=== PATIENT | female | born 1985 | race Caucasian/White ===

== ENCOUNTER → 2017-09-19 10:00 | Outpatient (CLI) | payer OTHER, SELFPAY ==
[2017-09-21 15:31] LABS: HPV Reflexed? NOT INDICATED
== END ==
PROVIDERS: Visit Provider Obstetrics & Gynecology
DX: Z12.4 Encounter for screening for malignant neoplasm of cervix (principal)
CPT/HCPCS: 88175; G0145

== ENCOUNTER → 2018-03-08 15:54 | Outpatient (CLI) | payer OTHER, SELFPAY ==
[2018-03-08 19:27] LABS: Chlamydia Trachomatis by PCR Negative (Negative); Neisserai gonorrhoeae by PCR Negative (Negative); Probe Check PASS; Sample Adequacy Control PASS; Specimen Processing Control PASS
== END ==
PROVIDERS: Visit Provider Obstetrics & Gynecology
DX: Z11.3 Encounter for screening for infections with a predominantly sexual mode of transmission (principal)
CPT/HCPCS: 87491; 87591

== ENCOUNTER → 2018-06-08 13:29 | Outpatient (CLI) | payer OTHER, SELFPAY ==
[2016-03-17 09:52] VITALS: BMI 33.8
[2018-06-08 15:34] LABS: Absolute Lymphocyte Count 1.87 X10^3/ul (0.83-4.51); Absolute Neutrophil Count 6.6 X10^3/uL (2.0-7.7); Basophil# 0.02 X10^3/uL; Basophil% 0.2 % (0-1); Eosinophil# 0.25 X10^3/uL; Eosinophils% 2.8 % (0-5); Hematocrit 35.3 % (37-47); Hemoglobin 11.6 g/dl (12.0-15.0); Lymphocyte # 1.87 X10^3/ul (4.0); Lymphocyte % 20.7 % (19-41); Mean Corp Hgb Conc 32.9 g/gl (32-36); Mean Corpuscular Hgb 30.1 pg (27.0-32.0); Mean Corpuscular Volume 91.5 fL (81-99); Mean Platelet Vol. 10.2 fl (6.2-12.0); Monocyte# 0.33 X10^3/uL; Monocyte% 3.6 % (0-10); Neutrophil # 6.57 X10^3/uL (2.7-7.7); Neutrophil % 72.6 % (47-70); Platelet Count 259 K/mm3 (150-450); RBC Distribution Width CV 12.9 % (11.6-14.6); RBC Distribution Width SD 42.9 fl (35.1-43.9); Red Blood Count 3.86 M/mm3 (4.2-5.4); White Blood Count 9.1 K/mm3 (4.4-11.0)
[2018-06-08 15:40] LABS: POSITIVE COUNT NO; POSITIVE DIFFERENTIAL NO; POSITIVE MORPHOLOGY NO
[2018-06-08 16:45] LABS: HIV - WCH Non-Reactive (Nonreactive); Rubella IgG 298.9 IU/mL
[2018-06-13 03:06] LABS: AFP MoM Value 1.68 (.); AFP Value-EIA 65.5 ng/mL (.); Comment Report (.); DIA Value-EIA 108.69 pg/mL (.); DSR (By Age) 452 (.); DSR (Second Trimester) 8005 (.); Gestat. Age Based On As provided (.); Gestational Age 18.1 WEEKS (.); Insulin Dep Diabetes No (.); Maternal Age At EDD 32.9 yr (.); hCG MoM 0.67 (.); hCG Value 16417 mIU/mL (.)
[2018-06-13 11:19] LABS: HEPATITIS B SURFACE AG Negative (Negative); V-Zoster IgG (Immunity) > 4000 index (Immune >165)
[2018-06-14 23:52] LABS: Prenatal RPR NONREACTIVE (NONREACTIVE)
--- OUTSIDE RECORDS SUMMARY | 2018-09-12 03:57 | XMS RPT_ITS ---
:1985 Author Organization OH[facility] Care Team Providers Name Role Phone Rochelle Kruse Attending Unavailable Rochelle Kruse Referring Unavailable Primay Care Physicia, No Primary Care Unavailable Lebron Correia Attending Unavailable Seals, Lebron Attending Unavailable PROBLEMS PROBLEMS DATE TYPE CONDITION / CODE ATTENDING STATUS SOURCE 03/09/2018 Unknown Z11.3 - Encounter Lebron Correia [place] for screening for Community infections with a [facility] Repository sexual mode of transmission / Z11.3(ICD-10) 09/19/2017 Unknown Z12.4 - Encounter Lebron Correia Active [place] for screening for Community malignant neoplasm [facility] / Repository Z12.4(ICD-10) PROCEDURES PROCEDURES No Procedure Records FoundRESULTS RESULTS CBC W/DIFF, AUTOMATED Collected: 06/08/2018 Status: F Source[facility] [place] [facility] TYPE CODE TESTS RESULT OUT OF RANGE REFERENCE UNITS LAB L100.1000 4.4-11.0 K/mm3 Normal WBC 9.1 LAB L100.1200 4.2-5.4 M/mm3 Low RBC 3.86 LAB L100.1300 12.0-15.0 g/dl Low HGB 11.6 LAB L100.1400 37-47 % Low HCT 35.3 LAB L100.1500 81-99 fL Normal MCV 91.5 LAB L100.1600 27.0-32.0 pg Normal MCH 30.1 LAB L100.1700 32-36 g/gl Normal MCHC 32.9 LAB L100.1810 11.6-14.6 % Normal RDW CV 12.9 LAB L100.1820 35.1-43.9 fl Normal RDW SD 42.9 LAB L100.1900 150-450 K/mm3 Normal PLT 259 LAB L100.2000 6.2-12.0 fl Normal MPV 10.2 LAB L100.2100 47-70 % High NEUT% 72.6 LAB L100.2200 19-41 % Normal LY% 20.7 LAB L100.2300 0-10 % Normal MONO% 3.6 LAB L100.2400 0-5 % Normal EO% 2.8 LAB L100.2500 0-1 % Normal BASO% 0.2 LAB L100.2550 0.0-0.9 % Normal IM GRAN % 0.100 Result Comment: IG% - Immature Granulocytes (promyelocytes, myelocytes and metamyelocytes) > 1% indicates that a LEFT SHIFT is Present. LAB L100.2620 2.0-7.7 X10 3/uL Normal Absolute Neut 6.6 LAB L100.2720 0.83-4.51 X10 3/ul Normal Absolute Lymph 1.87 Performed By: #### L100.0100 #### [facility] [address] [place], [address] T AND S-NO Collected: 06/08/2018 Status: F Source: [place] W/PNP 1:34 PM [facility] REPOSITORY Order Comment: Reason for Type AND Screen/Red Cells: Surgery? N TYPE CODE TESTS RESULT OUT OF RANGE REFERENCE UNITS LAB B10.0800 A Normal BLOOD POSITIVE TYPE GEL LAB B100.4050 Normal Ab SCREEN NEGATIVE GEL Performed By: #### B100.7550 #### [facility] [address] [facility]. [place], [place], [address] RUBELLA IGG Collected: 06/08/2018 Status: F Source: [place] 1:34 PM [facility] REPOSITORY TYPE CODE TESTS RESULT OUT OF RANGE REFERENCE UNITS LAB L509.4000 IU/mL Normal Rubella IgG 298.9 Result Comment: Antibody results Interpretation of Immune Status < 5 IU/ml Presumed Non-immune 5 - < 10 IU/ml Equivocal > or = 10 IU/ml Presumed Immune Performed By: #### L509.4000, L3890.6005 #### [facility] [address] [place], [place], [address] HIV - [facility] Collected: 06/08/2018 Status: F Source: [place] 1:34 PM [facility] REPOSITORY TYPE CODE TESTS RESULT OUT OF RANGE REFERENCE UNITS LAB L3890.6005 Nonreactive Normal HIV - [facility] Non-Reactive Performed By: #### L509.4000, L3890.6005 #### [facility] [address] [place], [address] HEPATITIS B SURFACE Collected: 06/08/2018 Status: F Source: [place] AG 1:34 PM [facility] REPOSITORY Order Comment: Is Patient ? Y Enter Completed Weeks of Gestation: 18.1 Patient's Weight (LBS.): 174 Race: / White Number of Fetuses: 1 Is Patient Insulin-Dependent Diabetic?: N TYPE CODE TESTS RESULT OUT OF RANGE REFERENCE UNITS LAB L3100.0400 Negative Normal HB Negative SURF AG Result Comment: Performed at: - [facility] [address] [id number] Truck Headlight Assembler: Phillip Wells MD, Phone: [phone] Performed at: [facility] [address] [id number] Truck Headlight Assembler: Farhat Bullard PhD, Phone: [phone] Performed By: #### L3100.0390, L3290.0100, L3400.0000 #### [facility] (refer to report for specific site) refer to report for address and phone number AFP TETRA QUAD Collected: 06/08/2018 Status: F Source: [place] SCREEN 1:34 PM [facility] REPOSITORY Order Comment: Is Patient ? Y Enter Completed Weeks of Gestation: 18.1 Patient's Weight (LBS.): 174 Race: / White Number of Fetuses: 1 Is Patient Insulin-Dependent Diabetic?: N TYPE CODE TESTS RESULT OUT OF REFERENCE UNITS RANGE LAB L3290.110 . 0 TEST RESULTS: Normal *Screen Negative* LAB L3290.120 . WEEKS 0 GESTATIONAL AGE Normal 18.1 LAB L3290.130 . 1 GEST AGE FROM As Normal provided LAB L3290.140 . yr 1 MATRNL AGE @JACQUELYN Normal 32.9 LAB L3290.150 . 0 RACE Normal LAB L3290.160 . lbs 0 WEIGHT Normal 174 LAB L3290.170 . 0 INS DEP DIABETE No Normal LAB L3290.180 . 0 MULT GESTATION No Normal LAB L3290.190 . ng/mL 0 AFP VALUE-EIA Normal 65.5 LAB L3290.200 . 0 AFP MOM VALUE Normal 1.68 LAB L3290.210 . mIU/mL 0 HCG VALUE Normal 10991 LAB L3290.220 . 0 HCG MOM Normal 0.67 LAB L3290.230 . ng/mL 0 UE3 VALUE Normal 1.26 LAB L3290.240 . 0 UE3 MOM Normal 0.98 LAB L3290.250 . pg/mL 0 HAYDEE VALUE-EIA Normal 108.69 LAB L3290.260 . 0 HAYDEE MOM VALUE Normal 0.70 LAB L3290.270 . 0 OSBR RISK Normal 1713 LAB L3290.280 . 0 DSR 2ND TRIMEST Normal 8005 LAB L3290.290 . 0 DSR (BY AGE) Normal 452 LAB L3290.310 . 0 T18 RISK Normal Not increased LAB L3290.320 . 0 T18 (BY AGE) Normal 1:1761 LAB L3290.330 . 0 INTERPRETATION Normal Comment Result Comment: Interpretation: Screen Negative This result is screen negative for OSB, Down Syndrome and Trisomy 18. The AFP MoM and patient specific risks calculated are based on the gestational age and the clinical information provided. This test can identify up to 80% of open neural tube defects. Closed neural tube defects and some open defects may not be detected by this test. The combination of maternal age, AFP, hCG, uE3, and HAYDEE identifies 75-80% of Down Syndrome. The combination of maternal age, AFP, hCG and uE3 identifies 60% of Trisomy 18 pregnancies. The [employer] recommends amniocentesis be offered to women age 35 and older. Recalculations are not recommended when gestational dating by LMP and ultrasound are within 10 days. Performed By: #### L3100.0390, L3290.0100, L3400.0000 #### [facility] (refer to report for specific site) refer to report for address and phone number V-ZOSTER IGG Collected: 06/08/2018 Status: F Source: [place] (IMMUNITY) 1:34 PM [facility] REPOSITORY Order Comment: Is Patient ? Y Enter Completed Weeks of Gestation: 18.1 Patient's Weight (LBS.): 174 Race: / White Number of Fetuses: 1 Is Patient Insulin-Dependent Diabetic?: N TYPE CODE TESTS RESULT OUT OF RANGE REFERENCE UNITS LAB L3400.0000 Immune >165 index Normal VZOST IgG > 4000 85604 Result Comment: Negative <135 Equivocal 135 - 165 Positive >165 A positive result generally indicates exposure to the pathogen or administration of specific immunoglobulins, but it is not indication of active infection or stage of disease. Performed By: #### L3100.0390, L3290.0100, L3400.0000 #### [facility] (refer to report for specific site) refer to report for address and phone number RPR Collected: 06/08/2018 Status: F Source: [place] 1:34 PM [facility] REPOSITORY TYPE CODE TESTS RESULT OUT OF REFERENCE UNITS RANGE LAB L700.5100 NONREACTIVE Normal RPR NONREACTIVE Performed By: #### L700.5100 #### [facility] [address] [facility] [place], [address] CT/NG [facility] BY PCR Collected: 03/08/2018 Status: F Source: [place] 2:20 PM [facility] REPOSITORY TYPE CODE TESTS RESULT OUT OF RANGE REFERENCE UNITS LAB L8200.2100 Negative Normal Chlam Negative Trac PCR LAB L8200.2200 Negative Normal NG by Negative PCR Performed By: #### L8200.2000 #### [facility] [address] [facility] [place], [address] PAP I-G W/RFX HRHPV Collected: 09/19/2017 Status: F Source: [place] 9:25 AM [facility] REPOSITORY Order Comment: CYTOLOGY INFORMATION: - CLINICAL INFORMATION: - DATE LMP/MENOPAUSE: 09-07-17 LMP - COLLECTION VIAL: Thin Prep Vial - VP & GENERAL COUNSEL SOURCE: CERVICAL/ENDOCERVICAL - COLLECTION TECHNIQUE: BRUSH/SPATULA Specimen Comment: [id number] Specimen Comment: No. of containers..01 ThinPrep Vial TYPE CODE TESTS RESULT OUT OF RANGE REFERENCE UNITS LAB L7400.0800 . Normal DIAGN Comment Result Comment: NEGATIVE FOR INTRAEPITHELIAL LESION AND MALIGNANCY. LAB L7400.0900 . Normal ADEQ Comment Result Comment: Satisfactory for evaluation. Endocervical and/or squamous metaplastic cells (endocervical component) are present. LAB L7400.1400 . Normal PERFORM Comment Result Comment: Mat Asher Certified Court/Medical Interpreter (ASCP) LAB L7400.2575 . Normal TEST METHOD Comment Result Comment: This liquid based ThinPrep(R) pap test was screened with the use of an image guided system. LAB L7400.2600 . Normal . COMM LAB L7400.2700 . Normal PAPSMR Comment Result Comment: The Pap smear is a screening test designed to aid in the detection of premalignant and malignant conditions of the uterine cervix. It is not a diagnostic procedure and should not be used as the sole means of detecting cervical cancer. Both false-positive and false-negative reports do occur. LAB L7400.2800 . Normal HPV RFLX Comment Result Comment: The HPV DNA reflex criteria were not met with this specimen result therefore, no HPV testing was performed. Performed at: [facility] [id number] Truck Headlight Assembler: Destini Mark MD, Phone: [phone] Performed By: #### L7400.0350 #### [facility] (refer to report for specific site) refer to report for address and phone number ALLERGIES ALLERGIES DATE TYPE / CODE NAME / CODE REACTION SEVERITY SOURCE 11/19/2013 Drug No Known Unknown [facility] Allergy/4160 Allergies/F00 Hospital [address](SNOMED [id number](RXNOR Repository CT) M) ENCOUNTERS ENCOUNTERS ADMIT/DISCHARGE ACCOUNT ADMITTING ENCOUNTER LOCATION SOURCE NUMBER CLASS 06/08/2018 [id number] Ambulatory [place] [facility] ing:MTLAB Repository 03/08/2018 [id number] [place] [facility] ing:LABSPEC Repository 09/19/2017 [id number] Ambulatory [place] 7 [facility] ing:LABSPEC Repository PAYERS PAYERS ENCOUNTER GUARANTOR PAYER SUBSCRIBER SOURCE 06/08/2018 SAL Stallings Primary SAL L [place] [id number] S Insurance:MEDICAL STRANGDOB: [facility] [id number] Repository [id number]: [id number] [phone] () Date:[id number] [address] [place] [phone]: 06/08/2018 Secondary NOT GIVENUNK [place] Insurance:SELF PAY [facility] Number: Effective Repository Date:2018-06-08 03/08/2018 SAL [id number] Primary SAL MILLERDOB: [place] Insurance:MEDICAL [id number] [facility] [address]Rij: (330) Number: Repository [phone] () [id number] Date:[id number] [address] [phone]: 03/08/2018 Secondary NOT GIVENUNK [place] Insurance:SELF PAY [facility] Number: Effective Repository Date:2018-03-08 09/19/2017 Sal [id number] Primary Sal MillerDOB: [place] S [place] Insurance:MEDICAL [id number] [facility] [address]Peq: (330) Number: Repository [phone] () [id number] Date:[id number] [address] [phone]: 09/19/2017 Secondary NOT GIVENUNK [place] Insurance:SELF PAY [facility] Number: Effective Repository Date:2017-09-19
== END ==
PROVIDERS: Referring Provider Obstetrics & Gynecology; Visit Provider Obstetrics & Gynecology
DX: O09.892 Supervision of other high risk pregnancies, second trimester (principal); Z3A.00 Weeks of gestation of pregnancy not specified
CPT/HCPCS: 36415; 82105; 82677; 84702; 85025; 86336; 86703; 86762; 86787; 87340